=== PATIENT | female | born 1990 | race Caucasian/White ===

== ENCOUNTER 2017-02-10 14:27 | Inpatient (IN) | payer OTHER ==
--- NOTE | 2017-02-10 15:25 | OBHP ---
Datetime: 02/10/2017 15:11 IP Adm Impression: Term, intrauterine ; Active labor IP Admit Plan: Admit to unit; Initiate labor protocol Admit Comment, IP Provider: 26yo with IUP at 39.3wks, Presents to the LND c/o contraction pains which started at 4am. She denies any VB or LOF. Pain has been increasing in intensity and frequency. Pt of Dr Milligan. [place]- Q 2-5 FHR- category 1 , Vtx, Cx: 2-3/60/-3 Assessment: IUP at 39.3wks in early Labor. Plan as per Dr Milligan who was contacted by phone. -Admit to LND -GBS is Negative as per Dr Milligan. Monitor the progress of Labor. Pelvic Type - PN: Adequate Extremities - PN: Normal Abdomen - PN: Normal Back - PN: Normal Breast - PN: Normal Lungs - PN: Normal Heart - PN: Normal Thyroid - PN: Normal Neurologic - PN: Normal HEENT - PN: Normal General - PN: Normal Presentation-Admit: Vertex FHR - Baseline A Provider: 140 Membranes, Provider: Intact Comments, ACOG Physical Exam: ABD: Soft,NT, BS -present Gestation - Est Wks by US: 39.3 EGA AdmitDate IP: 39.3 Vital Signs Provider: Reviewed IP Chief Complaint: Uterine contractions; Maternal discomfort NICHD Variability Prov Fetus A: Moderate 6-25bpm NICHD Accel Fetus A IP Provider: 15X15 FHR Category Provider Fetus A: Category II NICHD Decel Fetus A IP Provider: None Dilatation, Provider: 2-3 Effacement, Provider: 60 Station, Provider: -3 Genitourinary Exam: Normal DTRs - PN: Normal
[2017-02-10] MEDS ORDERED: Lactated Ringer's 1,000 ML IV SCH (15:30)
[2017-02-10 16:02] LABS: BASO # 0.1 K/uL (0.0-0.2); BASO % 0.7 % (0.0-2.0); EOS # 0.1 K/uL (0.0-0.7); EOS % 0.9 % (0.0-4.0); HEMATOCRIT 35.3 % (34.0-47.0); LYMPH % 12.1 % (20.0-40.0); MEAN CORPUSCULAR HEMOGLOBIN 26.8 pg (27.0-31.0); MEAN CORPUSCULAR HGB CONC 32.6 g/dL (33.0-37.0); MEAN PLATELET VOLUME 7.1 fL (7.2-11.7); MONO # 0.6 K/uL (0.0-0.8); MONO % 7.5 % (0.0-10.0); RED CELL DISTRIBUTION WIDTH 14.8 % (11.5-14.5); WHITE BLOOD COUNT 7.9 K/uL (4.8-10.8)
[2017-02-10 16:24] LABS: RBC URINE 23 /hpf (0-3); URINE BACTERIA MOD (<OCC); URINE BILIRUBIN NEGATIVE (NEGATIVE); URINE BLOOD 2+ (NEGATIVE); URINE COLOR Yellow (YELLOW); URINE GLUCOSE (UA) NORMAL (Normal); URINE KETONE TRACE mg/dL (NEGATIVE); URINE LEUKOCYTE ESTERASE NEG Leu/uL (Negative); URINE PROTEIN NEGATIVE (NEGATIVE); URINE UROBILINOGEN NORMAL mg/dL (0.2-1.0)
[2017-02-10 16:27] LABS: WBC URINE 5 /hpf (0-5)
[2017-02-10 16:37] LABS: CHLORIDE 102 mmol/L (98-107); POTASSIUM 3.6 mmol/L (3.6-5.2); SODIUM 133 mmol/L (132-148)
[2017-02-10 16:39] LABS: AST/SGOT 34 U/L (14-36); BILIRUBIN,TOTAL 0.6 mg/dL (0.2-1.3); CARBON DIOXIDE 19 mmol/L (22-30); GFR AFRICAN-AMERICAN > 60
[2017-02-10 16:40] LABS: ALB/GLOB RATIO 1.1 (1.0-2.1); ALKALINE PHOSPHATASE 173 U/L (38-126); ALT/SGPT 22 U/L (9-52); BLOOD UREA NITROGEN 5 mg/dL (7-17); CALCIUM 8.7 mg/dl (8.6-10.4); GLUCOSE,RANDOM 82 mg/dL (65-105); TOTAL PROTEIN 7.5 g/dL (6.3-8.3)
[2017-02-10] MEDS ORDERED: ePHEDrine 50 mg/ml Inj ONE (16:41)
[2017-02-10] MEDS ORDERED: Lidocaine 2% MPF (5 ml) Inj ONE (16:52)
[2017-02-10] MEDS ORDERED: Bupivacaine HCl 0.25% PF (10 ml) Inj ONE ×2 (17:59→18:00)
[2017-02-10] MEDS ORDERED: Oxytocin 30 UNIT 30 UNITS/500 ML BAG IV SCH (23:45)
[2017-02-11] MEDS ORDERED: Oxytocin 30 UNIT 30 UNITS/500 ML BAG IV ONE (00:09)
--- NOTE | 2017-02-11 06:35 | OBADHP ---
Datetime: 02/10/2017 15:11 Admit Comment, IP Provider: 26yo with IUP at 39.3wks, Presents to the LND c/o contraction pains which started at 4am. She denies any VB or LOF. Pain has been increasing in intensity and frequency. Pt of Dr Milligan. [place]- Q 2-5 FHR- category 1 , Vtx, Cx: 2-360/-3 Assessment: IUP at 39.3wks in early Labor. Plan as per Dr Milligan who was contacted by phone. -Admit to LND -GBS is Negative as per Dr Milligan. Monitor the progress of Labor. Pelvic Type - PN: Adequate Extremities - PN: Normal Abdomen - PN: Normal Back - PN: Normal Breast - PN: Normal Lungs - PN: Normal Heart - PN: Normal Thyroid - PN: Normal Neurologic - PN: Normal HEENT - PN: Normal General - PN: Normal Presentation-Admit: Vertex FHR - Baseline A Provider: 140 Membranes, Provider: Intact Comments, ACOG Physical Exam: ABD: Soft,NT, BS -present Gestation - Est Wks by US: 39.3 Vital Signs Provider: Reviewed IP Chief Complaint: Uterine contractions; Maternal discomfort NICHD Variability Prov Fetus A: Moderate 6-25bpm NICHD Accel Fetus A IP Provider: 15X15 FHR Category Provider Fetus A: Category II NICHD Decel Fetus A IP Provider: None Dilatation, Provider: 2-3 Effacement, Provider: 60 Station, Provider: -3 Genitourinary Exam: Normal DTRs - PN: Normal EGA AdmitDate IP: 39.3 IP Adm Impression: Term, intrauterine ; Active labor IP Admit Plan: Admit to unit; Initiate labor protocol
--- NOTE | 2017-02-11 06:37 | OBPN ---
Datetime: 02/10/2017 15:11 IP Progress Impression: Normal progression of labor IP Progress Plan: Anticipate Vaginal Delivery Membranes, Provider: Intact FHR - Baseline A Provider: 140 Gestation - Est Wks by US: 39.3 Presentation-Admit: Vertex IP Progress Note Comment: complete station +2, allow passive descent category II for intermittent variable decelerations mild anticipate for now MD Be Vital Signs Provider: Reviewed NICHD Accel Fetus A IP Provider: 15X15 FHR Category Provider Fetus A: Category II NICHD Variability Prov Fetus A: Moderate 6-25bpm Dilatation, Provider: 2-3 Effacement, Provider: 60 Station, Provider: -3 NICHD Decel Fetus A IP Provider: None
[2017-02-11] MEDS ORDERED: Bupivacaine-Epi 0.5%-1:200,000 PF Inj ONE (07:15)
[2017-02-11] MEDS ORDERED: Sodium Citrate/Citric Acid 15 ml Sol PO ONE (08:19)
[2017-02-11] MEDS ORDERED: cefOXitin IV 2 gm in Dextrose 2 GM/50 ML BAG IVPB ONE ×2 (09:08→09:43)
[2017-02-11] MEDS ORDERED: Sodium Citrate/Citric Acid 15 ml Sol ONE (09:08)
[2017-02-11] MEDS ORDERED: Lidocaine 2% Inj (20ml) ONE (09:11)
[2017-02-11] MEDS ORDERED: Sodium Bicarbonate (8.4%) 50 Meq Syringe ONE (09:16)
[2017-02-11] MEDS ORDERED: Morphine 1 mg/ml preservative-free Inj(Duramorph) ONE (09:23)
[2017-02-11] MEDS ORDERED: Lidocaine Hydrochloride 5 ML INJ ONE (09:23)
[2017-02-11] MEDS ORDERED: Lidocaine 2% MPF (5 ml) Inj ONE (09:23)
--- NOTE | 2017-02-11 09:31 | OBPN ---
Datetime: 02/11/2017 09:27 IP Progress Impression: Arrest of dilatation/descent IP Progress Plan: Deliver- Section IP Progress Note Comment: LGA fetus, pt pushing 2 hours with no descent, caput seen at introitus, +2 molding, most of head is still behind pubic arch, discussed I do not feel safe to attempt vacuum ass isted deilvery. patient and desires section, risks and benefits discussed
[2017-02-11] MEDS ORDERED: DiphenhydrAMINE 50 mg/ml Inj IVP PRN (10:52)
[2017-02-11] MEDS: Sodium Chloride Nasal 0.65% Soln (30ml) NAS PRN (16:56)
--- NOTE | 2017-02-11 21:04 | OBDS ---
DELIVERY PERSONNEL Delivery Doctor: dr ulices Young Nurse: Micki Hernández Laboratory Aide: Mir Vaca RN Anesthesiologist: mesha MATERNAL INFORMATION Delivery Anesthesia: Epidural Medications in Delivery: pitocin 20 Estimated Blood Loss (ml): 600 Placenta Cultured: No Maternal Complications: Other Other Maternal Complications: cpd, LABOR SUMMARY EDC: 02/14/2017 00:00 No. Babies in Womb: 1 Attempted: No Labor Anesthesia: Epidural LABOR INFORMATION Reason for Induction: Not Applicable Onset of Labor: 02/10/2017 17:48 Complete Dilatation: 02/11/2017 07:25 Oxytocin: Augmentation Group B Beta Strep: Negative Antibiotics # of Doses: 1 Antibiotics Time of Last Dose: 9:30 Steroids Given: None Reason Steroids Not Administered: Not Applicable MEMBRANES Membranes Rupture Method: Artificial Rupture of Membranes: 02/11/2017 02:43 Length of Rupture (hrs): 7.38 Amniotic Fluid Color: Clear Amniotic Fluid Amount: Moderate Amniotic Fluid Odor: Normal STAGES OF LABOR Stage 1 hrs: 13 Stage 1 min: 37 Stage 2 hrs: 2 Stage 2 min: 41 Stage 3 hrs: 0 Stage 3 min: 1 Total Time in Labor hrs: 16 Total Time in Labor min: 19 VAGINAL DELIVERY Laceration Extension: First Degree Laceration Type: Perineal Initial Vag Sponge Count: 10 Final Vag Sponge Count: 10 Initial Vag Sharps Count: 1 Final Vag Sharps Count: 1 Sponge Count Correct: Yes Sharps Count Correct: Yes Count Comment: sulcal tear with pushing CSECTION DELIVERY Primary Indication: Arrest of Descent Secondary Indication: cpd CSection Urgency: Non Elective CSection Incidence: Primary Labor: Labor Elective: Elective CSection Incision: Lower Uterine Transverse Uterine Closure: Single-layer closure BABY A INFORMATION Infant Delivery Date/Time: 02/11/2017 10:06 Method of Delivery: Born in Route : No : N/A Forceps: N/A Vacuum Extraction: N/A Shoulder Dystocia : No SHOULDER DYSTOCIA BABY A Infant Delivery Date/Time: 02/11/2017 10:06 PRESENTATION/POSITION BABY A Presentation: Cephalic Cephalic Presentation: Vertex Breech Presentation: to breech PLACENTA INFORMATION BABY A Placenta Delivery Time : 02/11/2017 10:07 Placenta Method of Delivery: Manual Removal Placenta Status: Delivered SCORES BABY A Heart Rate 1 min: >100 bpm Resp Effort 1 min: Good Cry Reflex Irritability 1 min: Cough or Sneeze or Pulls Away Muscle Tone 1 min: Active Motion Color 1 min: Body [place], Extremities Blue SCORE 1 MIN: 9 Heart Rate 5 min: >100 bpm Resp Effort 5 min: Good Cry Reflex Irritability 5 min: Cough or Sneeze or Pulls Away Muscle Tone 5 min: Active Motion Color 5 min: Body [place], Extremities Blue SCORE 5 MIN: 9 INFANT INFORMATION BABY A Gestational Age at Delivery: 39.4 Gestational Status: Term Infant Outcome : Liveborn Infant Condition : Stable Infant Sex: Male IDENTIFICATION/MEDS BABY A ID Band Number: [id number] ID Band Location: Left Leg; Left Arm Sensor Applied: Yes Sensor Number: [id number] Sensor Location : Cord Clamp WEIGHT/LENGTH BABY A Infant Birthweight (gms): 3235 Weight (lb): 7 Infant Weight (oz): 2 Length Inches: 20.00 Length cms: 50.8 CORD INFORMATION BABY A No. Cord Vessels: 3 Nuchal Cord : N/A Cord Blood Taken: Yes Infant Suction: Mouth; Nose ASSESSMENT BABY A Infant Complications: None Physical Findings at Delivery: Within Normal Limits Infant Respirations: Appears Normal Technical Intern/ALS Called : No Care By: dr yost Transferred To: Nursery
--- NOTE | 2017-02-11 21:18 | OBDS ---
Provider Comments: 2 hours pushing despite normal labor curve, +2 molding, no change of station with pushing, only caput, patient and agreed to proceed with section. live found in OP, narrow pubic arch, vertex was brought up to incision but at this time, n eonate became breech. bilateral feet were grasped and brought out of the incision until the level of the axilla, bilateral arms were reduced without issues, head delivered easily. uterine closure from either side, hemostatic, normal appearing ovaries and tubes, and uterus. per itoneum closed with 2-0 chromic, fascia closed from either corner with 0-vicryl. 2-0 plain gut to cl ose subcutaneous tissue, 4-0 monocryl for skin closure
[2017-02-12] MEDS: Oxycodone/Acetaminophen 5/325 mg Tab PO PRN (08:25)
[2017-02-12 08:35] LABS: BASO % 0.1 % (0.0-2.0); EOS % 0.1 % (0.0-4.0); HEMATOCRIT 25.9 % (34.0-47.0); LYMPH # 0.9 K/uL (1.0-4.3); LYMPH % 8.4 % (20.0-40.0); MEAN CELL VOLUME 81.7 fL (81.0-99.0); MEAN CORPUSCULAR HEMOGLOBIN 27.3 pg (27.0-31.0); MEAN CORPUSCULAR HGB CONC 33.5 g/dL (33.0-37.0); MEAN PLATELET VOLUME 6.8 fL (7.2-11.7); MONO # 0.8 K/uL (0.0-0.8); MONO % 8.1 % (0.0-10.0); NRBC % 0.1 % (0.0-2.0); PLATELET COUNT 212 K/uL (130-400); RED CELL DISTRIBUTION WIDTH 15.4 % (11.5-14.5); WHITE BLOOD COUNT 10.4 K/uL (4.8-10.8)
[2017-02-12 09:42] LABS: NEUTROPHIL 75 % (50-75); TOTAL CELLS COUNTED 100
--- NOTE | 2017-02-12 19:07 | OBPPN ---
Datetime: 02/12/2017 19:05 PP Pain Prov: Within normal limits PP Nausea Prov: Denies PP Flatus Prov: Yes PP Heart Prov: Normal PP Lungs Prov: Normal PP Abdomen/Uterus Prov: Normal PP Lochia Prov: Normal PP Vulva/Perineum Prov: Normal PP Progress Prov: Normal PP Impression Prov: Normal progression PP Plan Prov: Continue present management Vital Signs Provider PP: Reviewed
[2017-02-12 19:51] LABS: LYMPH # 1.1 K/uL (1.0-4.3); MONO # 0.8 K/uL (0.0-0.8); RED CELL DISTRIBUTION WIDTH 15.4 % (11.5-14.5)
[2017-02-12 20:02] LABS: BASO % 0.1 % (0.0-2.0); EOS % 0.1 % (0.0-4.0); HEMATOCRIT 27.3 % (34.0-47.0); LYMPH % 9.4 % (20.0-40.0); MEAN CELL VOLUME 81.4 fL (81.0-99.0); MEAN CORPUSCULAR HEMOGLOBIN 26.7 pg (27.0-31.0); MEAN CORPUSCULAR HGB CONC 32.8 g/dL (33.0-37.0); MEAN PLATELET VOLUME 6.9 fL (7.2-11.7); MONO % 6.4 % (0.0-10.0); PLATELET COUNT 263 K/uL (130-400); WHITE BLOOD COUNT 12.2 K/uL (4.8-10.8)
[2017-02-12 20:39] LABS: EOSINOPHIL 1 % (0-4); LARGE PLATELETS PRESENT; NEUTROPHIL 81 % (50-75); TOTAL CELLS COUNTED 100
[2017-02-12 23:59] VITALS: PULSE 90; O2SAT 98
[2017-02-13 07:51] VITALS: BP 115/78; RESP 18; TEMP 97.5
[2017-02-13] MEDS: Oxycodone/Acetaminophen 5/325 mg Tab PO PRN ×2 (08:43→14:45)
[2017-02-13] MEDS: Sodium Chloride Nasal 0.65% Soln (30ml) NAS PRN (10:12)
--- NOTE | 2017-02-14 20:02 | OBDCSUM ---
Datetime: 02/14/2017 09:04 Discharged to, Provider: Home Follow up at, Provider: JOLLY Champagne Instr Activity: Normal activity Disch Instr Diet: Regular Discharge Instructions, Provider: Routine instructions given Discharge Diagnosis, Provider: Term Delivered Discharge Time: 02/14/2017 19:30 Follow up in weeks, Provider: 1 wk Disch Referrals: None Contraception discussed, Prov: Yes Disch Activity Restrictions: No lifting; Minimize stair-climbing; No sexual activity; Nothing in vag sherry - [place], tampons, douche
--- NOTE | 2017-02-14 20:03 | OBPPN ---
Datetime: 02/14/2017 20:00 PP Pain Prov: Within normal limits PP Nausea Prov: Denies PP Flatus Prov: Yes PP BM Prov: Yes PP Heart Prov: Normal PP Lungs Prov: Normal PP Abdomen/Uterus Prov: Normal PP Lochia Prov: Normal PP C/S Incision Prov: Normal PP Impression Prov: Normal progression PP Plan Prov: Discharge Vital Signs Provider PP: Reviewed
--- NOTE | 2017-03-12 17:16 | OP ---
PROCEDURE DATE: 02/11/2017 PREOPERATIVE DIAGNOSES: Intrauterine at 39 weeks and 4 days, arrest of descent, no progres s after pushing for 3 hours, cephalopelvic disproportion. POSTOPERATIVE DIAGNOSIS: Intrauterine at 39 weeks and 4 days, arrest of descent, no progre ss after pushing for 3 hours, cephalopelvic disproportion. SURGEON: Heather Lr MD EEG TECH: ANESTHESIA: Spinal, ASA class 2. PROCEDURE DETAILS: The patient was taken to the holding room. The risks, benefits, all complication s, treatment options and expected outcomes were discussed with the patient. The patient concurred wi th the proposed plan giving consent. The patient was taken to the operating room and identified and the procedure verified a delivery. A timeout was performed and held above. Information wa s repeated. After anesthesia was found to be adequate, the patient was draped and prepped in the [facility] sterile fashion. A Pfannenstiel incision was made, carried down through the subcutaneous layers of fascia. Fascial incision was made and extended transversely. The fascia was from the u nderlying rectus tissues superiorly and inferiorly. The peritoneum was identified and entered. The peritoneal incision was extended longitudinally. The uterovesical peritoneal reflection was incised transversely and the bladder flap was bluntly freed from the lower uterine segment. A low transverse uterine incision was made. The baby was found to be very low in the pelvis and in the process of br inging the head to the incision the flipped to breech and the patient was delivered in comple te breech fashion without any complications. There was no dystocia. The Apgars were 9 and 9. The u mbilical cord was clamped and a segment of cord blood was not obtained. The placenta was removed int act and appeared normal. The uterine outline, tubes and ovaries appeared normal, except for a fibroi d uterus. The uterine incision was closed with running locked sutures of 0 Vicryl from either side. Hemostasis was observed. The peritoneum was closed with 2-0 Chromic. The fascia was reapproximated with 0 Vicryl from either end. Subcutaneous tissue was reapproximated with 3-0 Vicryl. The skin wa s reapproximated with Monocryl. The patient tolerated the procedure well. Instrument, sponge, and n eedle counts were correct x 3 prior to abdominal closure and at the conclusion of the case. FINDINGS: Normal appearing tubes, uterus and ovaries, except for a small fibroid uterus. The neonat e was in vertex presentation, but deep in the pelvis and flipped to a complete breech upon delivery. ESTIMATED BLOOD LOSS: 700 mL. SPECIMENS: None. COMPLICATIONS: None. DISPOSITION: Same. CONDITION: Stable. I was scrubbed for the entire procedure. Heather Lr MD cc: [id number] TT: 03/12/2017 17:15:11 mn
== END 2017-02-14 21:30 | disposition home or self-care (01) | DRG 766 ==
LOC: C.EROB 14:27 → C.4D 15:26 → C.4M 02-11 12:53
PROVIDERS: ADMIT Obstetrics & Gynecology; ATTEND Obstetrics & Gynecology
PROC: 10D00Z1 Extraction of Products of Conception, Low, Open Approach (ICD-10-PCS; principal; 2017-02-10)
DX: O32.1XX0 Maternal care for breech presentation, not applicable or unspecified (principal); Z37.0 Single live birth; Z3A.39 39 weeks gestation of pregnancy